=== PATIENT | female | born 1995 | race African-American/Black ===

== ENCOUNTER 2023-11-30 08:09 | Outpatient (OUT) | payer BC, SELFPAY | END 2023-11-30 08:10 | disposition home or self-care (01) | LOC: PST 08:13 | PROVIDERS: Visit Provider Obstetrics & Gynecology | DX: Z01.818 Encounter for other preprocedural examination (principal); Z30.2 Encounter for sterilization ==

== ENCOUNTER 2023-12-09 06:05 | Day surgery (SDC) | payer BC, OTHER, SELFPAY ==
[2023-11-30 08:31] VITALS: BP 107/72; PULSE 78; TEMP 36.3; O2SAT 96; BMI 29.4
[2023-12-09] VITALS (9 sets, daily range): BP systolic 102–122; BP diastolic 57–89; PULSE 62–86; TEMP 36.1–36.3; O2SAT 97–100; BMI 29.5
--- OUTSIDE RECORDS SUMMARY | 2023-12-09 06:08 | XMS_ITS | CCD ---
Author Organization [facility] Care Team Providers Care Management Planner Name Role Phone REQUEST, DR NONE LISTED Primary Care Unavaila ble HOLLY ., OSMAN Consulting Unavailable HOLLY ., OSMAN Admitting Unavailable HOLLY ., OMSAN Attending Unavailable KARASIK ., DR RODNEY Admitting Unavailabl e KARASIK ., DR RODNEY Attending Unavailabl e KARASIK ., DR RODNEY Consulting Unavailabl e MISC, DR PEACOCK Primary Care Unavailable ZIEBER, DR HARISH Trivedi Consulting Unavailable KARASIK ., DR RODNEY Admitting Unavailabl e KARASIK ., DR RODNEY Attending Unavailabl e KARASIK ., DR RODNEY Consulting Unavailabl e MISC, DR PEACOCK Primary Care Unavailable KARASIK ., DR RODNEY Admitting Unavailabl e KARASIK ., DR RODNEY Attending Unavailabl e MISC, DR PEACOCK Primary Care Unavailable KARASIK ., DR RODNEY Admitting Unavailabl e KARASIK ., DR RODNEY Attending Unavailabl e KARASIK ., DR RODNEY Consulting Unavailabl e MISC, DR PEACOCK Primary Care Unavailable ZIEBER, DR HARISH Trivedi Consulting Unavailable KARASIK ., DR RODNEY Admitting Unavailabl e KARASIK ., DR RODNEY Attending Unavailabl e KARASIK ., DR RODNEY Consulting Unavailabl e [facility] Primary Care Unava ilable HOLLY ., OSMAN Attending Unavailable REQUEST, DR DIAZ LISTED Primary Care Unavaila ble HOLLY ., OSMAN Consulting Unavailable HLOLY ., OSMAN Admitting Unavailable [facility] Primary Care Unava ilable SARA, DR KALEIGH Trivedi Admitting Unavailable SARA, DR KALEIGH Trivedi Attending Unavailable SARA, DR KALEIGH Trivedi Consulting Unavailable KATALINA, DR DIAZ LISTED Primary Care Unavaila ble NUSRAT ., DR BASS Procedure Practitioner Unavail able KARASIK ., DR RODNEY Admitting Unavailabl e KARASIK ., DR RODNEY Attending Unavailabl e KARASIK ., DR RODNEY Consulting Unavailabl e NUSRAT ., DR BASS Consulting Unavailable ALPHONSO, STEVEN Nelson Consulting Unavailable SHARP, ARTURO Consulting Unavailable ALPHONSO II, ELLA Consulting Unavailable FLORO ., JOSE Consulting Unavailable KARASIK ., DR RODNEY Consulting Unavailabl e MISC, DR PEACOCK Primary Care Unavailable KARASIK ., DR RODNEY Admitting Unavailabl e KARASIK ., DR RODNEY Attending Unavailabl e NUSRAT ., DR BASS Consulting Unavailable NUSRAT ., DR BASS Admitting Unavailable NUSRAT ., DR BASS Attending Unavailable MISC, DR PEACOCK Primary Care Unavailable NUSRAT ., DR BASS Admitting Unavailable NUSRAT ., DR BASS Attending Unavailable MISC, DR PEACOCK Primary Care Unavailable NUSRAT ., DR BASS Consulting Unavailable ZIEBER, DR HARISH Trivedi Consulting Unavailable REQUEST, DR JOE LISTED Primary Care Unavaila ble HOLLY ., OSMAN Admitting Unavailable HOLLY ., OSMAN Attending Unavailable HOLLY ., OSMAN Consulting Unavailable NUSRAT, KALI Attending Unavailable NUSRAT, KALI Attending Unavailable Problems Active Problems Problem Classification Problem Date Documented Da te Episodic/Chronic Asthma (1 source) Unspecified asthma, uncomplicated; Translations: [UNSPECIFIED ASTHMA UNCOMPLICATED] Onset: 03-17-2022 Chronic Deficiency and other anemia (1 source) Anemia, unspecified; Translations: [ANEMIA UNSPECIFIED] Onset: 07-25-2022 Episodic Menstrual disorders (5 sources) Irregular menstruation, unspecified; Translations: [IRREGULAR MENSTRUATION UNSPECIFIED] Onset: 02-09-2022 Chronic Other complications of ; puerperium affecting management of mother (1 source) Obstetric high vaginal laceration alone; Translations: [OBSTETRIC HIGH VAG LACERATION ALONE] Onset: 09-02-2022 Episodic Other complications of (4 sources) Anemia complicating , third trimester; Translations: [ANEMIA COMP THIRD TRI] Onset: 07-25-2022 Chronic Other complications of (4 sources) Anemia complicating , unspecified trimester; Translations: [ANEMIA COMP UNS TRIMESTER] Onset: 08-05-2022 Chronic Other complications of (4 sources) Maternal care for excessive growth, third trimester, not applicable or unspecified; Translations: [MAT CARE EXCSS FTL GRTH 3RD TRI UNS] Onset: 07-30-2022 Episodic Other and delivery including normal (14 sources) Single live ; Translations: [Encounter for supervision of normal , unspecified, unspecified trimester] Onset: 02-01-2022 Episodic Residual codes; unclassified (1 source) 38 weeks gestation of ; Translations: [38 WEEKS GESTATION OF ] Onset: 09-02-2022 Episodic Residual codes; unclassified (1 source) Weeks of gestation of not specified; Translations: [WEEKS GESTATION NOT SPEC] Onset: 08-16-2022 Episodic Residual codes; unclassified (1 source) 36 weeks gestation of ; Translations: [36 WEEKS GESTATION OF ] Onset: 08-06-2022 Episodic Unclassified (2 sources) COUGH, UNSPECIFIED; Translations: [COUGH, UNSPECIFIED] Onset: 03-17-2022 Unclassified (1 source) CONTACT W/AND (SUSP) EXPOS COVID-19; Translations: [CONTACT W/AND (SUSP) EXPOS COVID-19] Onset: 03-17-2022 Past or Other Problems Problem Classification Problem Date Documented Date Episodic/Chronic Fever of unknown origin (1 source) Fever, unspecified; Translations: [FEVER UNSPECIFIED] Onset: 03-17-2022 Episodic Immunizations and screening for infectious disease (2 sources) Encounter for screening for infections with a predominantly sexual mode of transmission; Translations: [Contact with and (suspected) exposure to infections with a predominantly sexual mode of transmission] Onset: 02-11-2022 Episodic Influenza (1 source) Influenza due to other identified influenza virus with other respiratory manifestations; Translations: [FLU D/T OTH ID FLU VIR OTH RSP MANF] Onset: 03-17-2022 Episodic Other screening for suspected conditions (not mental disorders or infectious disease) (2 sources) Encounter for screening for diabetes mellitus; Translations: [Encounter for other screening for genetic and chromosomal anomalies] Onset: 02-11-2022 Episodic Unclassified (1 source) COUGH, UNSPECIFIED; Translations: [COUGH, UNSPECIFIED] Onset: 03-16-2022 Results Test Name Value Interpretation Reference Range Facility CBC AUTO DIFFon 08-17-2022 BASO # 0.0 103/ul Normal 0.0-0.1 [facility] Comment on above: Performed By: #### H [facility] #### [facility] [address] [place] [address] Dr. Yilan Shook Basophils/100 WBC (Bld) 0.2 % Normal 0.2-2.0 [facility] Comment on above: Performed By: #### H BSANS #### [facility] [address] [place] [address] Dr. Casper Shook EO # 0.1 103/ul Normal 0.0-0.7 [facility] Comment on above: Performed By: #### H BSANS #### [facility] [address] [place] [address] Dr. Casper Shook Eosinophils/100 WBC (Bld) 0.4 % Critically low 0.9-7.0 [facility] Comment on above: Performed By: #### H BSANS #### [facility] [address] [place] [address] Dr. Casper Shook Erythrocyte distribution width (RBC) [Ratio] 18.9 % Critically high 11.0-15.0 [facility] Comment on above: Performed By: #### H BSANS #### [facility] [address] [place] [address] Dr. Casper Shook Hematocrit (Bld) [Volume fraction] 24.4 % Critically low 36.0-48.0 [facility] Comment on above: Performed By: #### H BSANS #### [facility] [address] [place] [address] Dr. Casper Shook Hemoglobin (Bld) [Mass/Vol] 7.5 g/dL Critically low 12.0-16.0 [facility] Comment on above: Performed By: #### H BSANS #### [facility] [address] [place] [address] Dr. Casper Shook IG # 0.09 10e3/ul Critically high 0.00-0.03 [facility] Comment on above: Performed By: #### H BSANS #### [facility] [address] [place] [address] Dr. Casper Shook IG % 0.5 % Normal 0.0-0.5 [facility] Comment on above: Performed By: #### H BSANS #### [facility] [address] [address] [address] Casper Shook LYMPH # 2.4 103/ul Normal 1.2-3.8 [facility] Comment on above: Performed By: #### H BSANS #### [facility] [address] [place] [address] Dr. Casper Shook Lymphocytes/100 WBC (Bld) 13.9 % Critically low 20.5-60.0 [facility] Comment on above: Performed By: #### H BSANS #### [facility] [address] [place] [address] Dr. Casper Shook MANUAL DIFF REQ NO Normal [facility] Comment on above: Performed By: #### H BSANS #### [facility] [address] [place] [address] Dr. Casper Shook MCH (RBC) [Entitic mass] 24.5 pg Critically low 26.7-34.0 [facility] Comment on above: Performed By: #### H BSANS #### [facility] [address] [place] [address] Dr. Casper Shook MCHC (RBC) [Mass/Vol] 30.7 g/dL Normal 29.9-35.2 [facility] Comment on above: Performed By: #### H BSANS #### [facility] [address] [place] [address] Dr. Casper Shook MCV (RBC) [Entitic vol] 79.7 fL Critically low 81.0-99.0 [facility] Comment on above: Performed By: #### H BSANS #### [facility] [address] [place] [address] Dr. Casper Shook MONO # 1.5 103/ul Critically high 0.3-0.8 [facility] Comment on above: Performed By: #### H BSANS #### [facility] [address] [place] [address] Dr. Casper Shook Monocytes/100 WBC (Bld) 8.4 % Normal 1.7-12.0 [facility] Comment on above: Performed By: #### H BSANS #### [facility] [address] [address] [address] Casper Shook NEUT # 13.3 103/ul Critically high 1.4-6.5 [facility] Comment on above: Performed By: #### H BSANS #### [facility] [address] [address] [address] Casper Shook Neutrophils/100 WBC (Bld) 76.6 % Critically high 43.0-75.0 [facility] Comment on above: Performed By: #### H CELENS #### [facility] [address] [place] [address] Dr. Casper Shook Platelet mean volume (Bld) [Entitic vol] 12.0 fL Normal 9.5-13.5 [facility] Comment on above: Performed By: #### H RIA #### [facility] [address] [place] [address] Dr. Casper Shook PLT 169 103/ul Normal 150-450 [facility] Comment on above: Performed By: #### H RIA #### [facility] [address] [place] [address] Dr. Casper Shook RBC 3.06 106/ul Critically low 4.20-5.40 [facility] Comment on above: Performed By: #### H RIA #### [facility] [address] [place] [address] Dr. Casper Shook WBC 17.4 103/ul Critically high 4.0-11.0 [facility] Comment on above: Performed By: #### H BSANS #### [facility] [address] [place] [address] Dr. Casper Shook CBC AUTO DIFFon 08-16-2022 BASO # 0.0 103/ul Normal 0.0-0.1 [facility] Comment on above: Performed By: #### C V[facility] #### [facility] [address] [place] [address] Dr. Casper Shook Basophils/100 WBC (Bld) 0.3 % Normal 0.2-2.0 [facility] Comment on above: Performed By: #### C VDTBH #### [facility] [address] [place] [address] Dr. Casper Shook EO # 0.1 103/ul Normal 0.0-0.7 [facility] Comment on above: Performed By: #### C VDTBH #### [facility] [address] [place] [address] Dr. Casper Shook Eosinophils/100 WBC (Bld) 0.6 % Critically low 0.9-7.0 [facility] Comment on above: Performed By: #### C VDTBH #### [facility] [address] [place] [address] Dr. Casper Shook Erythrocyte distribution width (RBC) [Ratio] 19.8 % Critically high 11.0-15.0 [facility] Comment on above: Performed By: #### C VDTB #### [facility] [address] [place] [address] Dr. Casper Shook Hematocrit (Bld) [Volume fraction] 33.4 % Critically low 36.0-48.0 [facility] Comment on above: Performed By: #### C VDTBH #### [facility] [address] [place] [address] Dr. Casper Shook Hemoglobin (Bld) [Mass/Vol] 10.8 g/dL Critically low 12.0-16.0 [facility] Comment on above: Performed By: #### C VDTBH #### [facility] [address] [place] [address] Dr. Casper Shook IG # 0.05 10e3/ul Critically high 0.00-0.03 [facility] Comment on above: Performed By: #### C VDTBH #### [facility] [address] [place] [address] Dr. Casper Shook IG % 0.4 % Normal 0.0-0.5 [facility] Comment on above: Performed By: #### C VDTBH #### [facility] [address] [place] [address] Dr. Casper Shook LYMPH # 1.8 103/ul Normal 1.2-3.8 [facility] Comment on above: Performed By: #### C VDTBH #### [facility] [address] [place] [address] Dr. Casper Shook Lymphocytes/100 WBC (Bld) 15.6 % Critically low 20.5-60.0 [facility] Comment on above: Performed By: #### C VDTBH #### [facility] [address] [place] [address] Dr. Casper Shook MANUAL DIFF REQ NO Normal [facility] Comment on above: Performed By: #### C VDTBH #### [facility] [address] [place] [address] Dr. Casper Shook MCH (RBC) [Entitic mass] 24.9 pg Critically low 26.7-34.0 [facility] Comment on above: Performed By: #### C VDTBH #### [facility] [address] [place] [address] Dr. Casper Shook MCHC (RBC) [Mass/Vol] 32.3 g/dL Normal 29.9-35.2 [facility] Comment on above: Performed By: #### C VDTBH #### [facility] [address] [place] [address] Dr. Casper Shook MCV (RBC) [Entitic vol] 77.1 fL Critically low 81.0-99.0 [facility] Comment on above: Performed By: #### C VDTBH #### [facility] [address] [place] [address] Dr. aCsper Shook MONO # 0.9 103/ul Critically high 0.3-0.[address] [facility] Comment on above: Performed By: #### C VDT[facility] #### [facility] [address] [place] [address] Dr. Casper Shook Monocytes/100 WBC (Bld) 7.9 % Normal 1.7-12.0 [facility] Comment on above: Performed By: #### C VDTBH #### [facility] [address] [place] [address] Dr. Casper Shook NEUT # 8.7 103/ul Critically high 1.4-6.[address] [facility] Comment on above: Performed By: #### C VDT[facility] #### [facility] [address] [address] [address] Casper Shook Neutrophils/100 WBC (Bld) 75.2 % Critically high 43.0-75.0 [facility] Comment on above: Performed By: #### C VDT[facility] #### [facility] [address] [address] [address] Casper Shook Platelet mean volume (Bld) [Entitic vol] 12.0 fL Normal 9.5-13.5 [facility] Comment on above: Performed By: #### C VDT[facility] #### [facility] [address] [place] [address] Dr. Casper Shook PLT 200 103/ul Normal 150-450 [facility] Comment on above: Performed By: #### C VDT[facility] #### [facility] [address] [place] [address] Dr. Casper Shook RBC 4.33 106/ul Normal 4.20-5.40 [facility] Comment on above: Performed By: #### C VDTBH #### [facility] [address] [place] [address] Dr. Casper Shook WBC 11.6 103/ul Critically high 4.0-11.0 [facility] Comment on above: Performed By: #### C VDTBH #### [facility] [address] [place] [address] Dr. Casper Shook DRUG SCREEN RAPID (URINE)on 08-16-2022 AMP Negative Normal NEGATIVE [facility] Comment on above: Performed By: #### D RUGRPD #### [facility] [address] [place] [address] Dr. Casper Shook BAR Negative Normal NEGATIVE [facility] Comment on above: Performed By: #### D RUGRPD #### [facility] [address] [place] [address] Dr. Casper Shook BUP Negative Normal NEGATIVE [facility] Comment on above: Performed By: #### D RUGRPD #### [facility] [address] [place] [address] Dr. Casper Shook BZO Negative Normal NEGATIVE [facility] Comment on above: Performed By: #### D RUGRPD #### [facility] [address] [place] [address] Dr. Casper Shook JONATHAN Negative Normal NEGATIVE [facility] Comment on above: Performed By: #### D RUGRPD #### [facility] [address] [place] [address] Dr. Casper Shook CUT-OFFS SEE BELOW Normal [facility] Comment on above: Result Comment: AMP (Amphetamine): 500ng/mL, BAR (Barbituates): 200 ng/mL, BZO (Benzodiazepines): 150 ng/mL, BUP (Buprenorphine): 10 ng/mL, JONATHAN (Cocaine): 150 ng/mL, mAMP (Methamphetamine): 500 ng/mL, MTD (Methadone): 200 ng/mL, OPI (Opiates): 100 ng/mL, OXY (Oxycodone): 100 ng/mL, PCP (Phencyclidine): 25 ng/mL, PPX (Propoxyphene): 300 ng/mL, THC (Cannabinoids): 50 ng/mL, TCA (Trycyclic Antidepressants): 300 ng/mL Performed By: #### D RUGRPD #### [facility] [address] [place] [address] Dr. Casper Shook DRUG CUT HEADER DRUG CLASS TEST SYSTEM CUT-OFF CONCENTRATIONS ARE FOLLOWS: Normal [facility] Comment on above: Performed By: #### D RUGRPD #### [facility] [address] [place] [address] Dr. Casper Shook mAMP Negative Normal NEGATIVE [facility] Comment on above: Performed By: #### D RUGRPD #### [facility] [address] [place] [address] Dr. Casper Shook MTD Negative Normal NEGATIVE [facility] Comment on above: Performed By: #### D RUGRPD #### [facility] [address] [place] [address] Dr. Casper Shook OPI Negative Normal NEGATIVE [facility] Comment on above: Performed By: #### D RUGRPD #### [facility] [address] [address] [address] Casper Shook OXY Negative Normal NEGATIVE [facility] Comment on above: Performed By: #### D RUGRPD #### [facility] [address] [place] [address] Dr. Casper Shook PCP Negative Normal NEGATIVE [facility] Comment on above: Performed By: #### D RUGRPD #### [facility] [address] [place] [address] Dr. Casper Shook PPX Negative Normal NEGATIVE [facility] Comment on above: Performed By: #### D RUGRPD #### [facility] [address] [place] [address] Dr. Casper Shook TCA Negative Normal NEGATIVE [facility] Comment on above: Performed By: #### D RUGRPD #### [facility] [address] [place] [address] Dr. Casper Shook THC Negative Normal NEGATIVE [facility] Comment on above: Performed By: #### D RUGRPD #### [facility] [address] [place] [address] Dr. Casper Shook TYPE AND SCREENon 08-16-2022 TYPE AND SCREEN Negative Normal [facility] Comment on above: Performed By: #### T NS #### [facility] [address] [place] [address] Dr. Casper Shook US PREG GROWTHon 08-02-2022 US PREG GROWTH EXAMINATION: US PREG GROWTH HISTORY: Excessive growth affecting management of mother COMPARISON: Ultrasound anatomy 04/09/2022 FINDINGS: Heart Rate: 124.4 bpm Number: 1.0 Position: CEPHALIC Amniotic Fluid Volume: 12.5 cm Maximum Vertical Pocket: 5.1 cm BIOMETRY: BPD: 9.1 cm cm; 37 weeks 0 days HC: 33.8 cmcm; 38 weeks 6 days AC: 33.5 cm cm; 37 weeks 3 days FL: 6.7 cm cm; 34 weeks 3 days EFW: 3029.3 grams; 70% FL/AC: 20.0 FL/BPD: 73.4 HC/AC: 1.0 GESTATIONAL AGE: Age by EDC: 36 weeks 1 days KVNG by EDC: 08/26/2022 Age by US: 37 weeks 0 days KVNG by US: 08/20/2022 IMPRESSION: 1. Single live intrauterine with growth detailed above. Electronically authenticated by: HARISH BOTELLO Date: 2022-08-02 09:39 Normal [facility] GROUP B STREP CULTUREon 07-02 S. agalactiae Ag Ql (Unsp spec) Culture Observations: NEGATIVE FOR GROUP B STREPTOCOCCUS. Normal [facility] Comment on above: Performed By: #### H BSANS #### [facility] [address] [place] [address] Dr. Casper Shook CBC AUTO DIFFon 07-22-2022 BASO # 0.0 103/ul Normal 0.0-0.1 [facility] Comment on above: Performed By: #### C BC #### [facility] [address] [place] [address] Dr. Casper Shook Basophils/100 WBC (Bld) 0.2 % Normal 0.2-2.0 [facility] Comment on above: Performed By: #### C BC #### [facility] [address] [place] [address] Dr. Casper Shook EO # 0.1 103/ul Normal 0.0-0.7 [facility] Comment on above: Performed By: #### C BC #### [facility] [address] [place] [address] Dr. Casper Shook Eosinophils/100 WBC (Bld) 0.8 % Critically low 0.9-7.0 [facility] Comment on above: Performed By: #### C BC #### [facility] [address] [place] [address] Dr. Casper Shook Erythrocyte distribution width (RBC) [Ratio] 14.9 % Normal 11.0-15.0 [facility] Comment on above: Performed By: #### C BC #### [facility] [address] [place] [address] Dr. Casper Shook Hematocrit (Bld) [Volume fraction] 29.5 % Critically low 36.0-48.0 [facility] Comment on above: Performed By: #### C BC #### [facility] [address] [address] [address] Casper Shook Hemoglobin (Bld) [Mass/Vol] 9.6 g/dL Critically low 12.0-16.0 [facility] Comment on above: Performed By: #### C BC #### [facility] [address] [address] [address] Casper Shook IG # 0.04 10e3/ul Critically high 0.00-0.03 [facility] Comment on above: Performed By: #### C BC #### [facility] [address] [address] [address] Casper Shook IG % 0.5 % Normal 0.0-0.5 [facility] Comment on above: Performed By: #### C BC #### [facility] [address] [place] [address] Dr. Casper Shook LYMPH # 1.5 103/ul Normal 1.2-3.8 [facility] Comment on above: Performed By: #### C BC #### [facility] [address] [place] [address] Dr. Casper Shook Lymphocytes/100 WBC (Bld) 17.9 % Critically low 20.5-60.0 [facility] Comment on above: Performed By: #### C BC #### [facility] [address] [place] [address] Dr. Casper Shook MANUAL DIFF REQ NO Normal [facility] Comment on above: Performed By: #### C BC #### [facility] [address] [address] [address] Casper Shook MCH (RBC) [Entitic mass] 24.7 pg Critically low 26.7-34.0 [facility] Comment on above: Performed By: #### C BC #### [facility] [address] [place] [address] Dr. Casper Shook MCHC (RBC) [Mass/Vol] 32.5 g/dL Normal 29.9-35.2 [facility] Comment on above: Performed By: #### C BC #### [facility] [address] [address] [address] Casper Shook MCV (RBC) [Entitic vol] 75.8 fL Critically low 81.0-99.0 [facility] Comment on above: Performed By: #### C BC #### [facility] [address] [address] [address] Casper Shook MONO # 0.6 103/ul Normal 0.3-0.8 [facility] Comment on above: Performed By: #### C BC #### [facility] [address] [address] [address] Casper Shook Monocytes/100 WBC (Bld) 7.2 % Normal 1.7-12.0 [facility] Comment on above: Performed By: #### C BC #### [facility] [address] [address] [address] Casper Shook NEUT # 6.3 103/ul Normal 1.4-6.5 [facility] Comment on above: Performed By: #### C BC #### [facility] [address] [address] [address] Casper Shook Neutrophils/100 WBC (Bld) 73.4 % Normal 43.0-75.0 [facility] Comment on above: Performed By: #### C BC #### [facility] [address] [address] [address] Casper Shook Platelet mean volume (Bld) [Entitic vol] 10.7 fL Normal 9.5-13.5 [facility] Comment on above: Performed By: #### C BC #### [facility] [address] [address] [address] Casper Shook PLT 218 103/ul Normal 150-450 [facility] Comment on above: Performed By: #### C BC #### [facility] [address] [address] [address] Casper Shook RBC 3.89 106/ul Critically low 4.20-5.40 [facility] Comment on above: Performed By: #### C BC #### [facility] [address] [address] [address] Casper Shook WBC 8.6 103/ul Normal 4.0-11.0 [facility] Comment on above: Performed By: #### C BC #### [facility] [address] [place] [address] Dr. Casper Shook CBC AUTO DIFFon 06-08-2022 BASO # 0.0 103/ul Normal 0.0-0.1 [facility] Comment on above: Performed By: #### C BC #### [facility] [address] [place] [address] Dr. Casper Shook Basophils/100 WBC (Bld) 0.3 % Normal 0.2-2.0 [facility] Comment on above: Performed By: #### C BC #### [facility] [address] [place] [address] Dr. Casper Shook EO # 0.2 103/ul Normal 0.0-0.7 [facility] Comment on above: Performed By: #### C BC #### [facility] [address] [place] [address] Dr. Casper Shook Eosinophils/100 WBC (Bld) 2.0 % Normal 0.9-7.0 [facility] Comment on above: Performed By: #### C BC #### [facility] [address] [place] [address] Dr. Casper Shook Erythrocyte distribution width (RBC) [Ratio] 14.6 % Normal 11.0-15.0 [facility] Comment on above: Performed By: #### C BC #### [facility] [address] [place] [address] Dr. Casper Shook Hematocrit (Bld) [Volume fraction] 31.5 % Critically low 36.0-48.0 [facility] Comment on above: Performed By: #### C BC #### [facility] [address] [place] [address] Dr. Casper Shook Hemoglobin (Bld) [Mass/Vol] 9.5 g/dL Critically low 12.0-16.0 [facility] Comment on above: Performed By: #### C BC #### [facility] [address] [address] [address] Casper Shook IG # 0.04 10e3/ul Critically high 0.00-0.03 [facility] Comment on above: Performed By: #### C BC #### [facility] [address] [address] [address] Casper Shook IG % 0.5 % Normal 0.0-0.5 [facility] Comment on above: Performed By: #### C BC #### [facility] [address] [place] [address] Dr. Casper Shook LYMPH # 1.4 103/ul Normal 1.2-3.8 [facility] Comment on above: Performed By: #### C BC #### [facility] [address] [place] [address] Dr. Casper Shook Lymphocytes/100 WBC (Bld) 15.6 % Critically low 20.5-60.0 [facility] Comment on above: Performed By: #### C BC #### [facility] [address] [place] [address] Dr. Casper Shook MANUAL DIFF REQ NO Normal [facility] Comment on above: Performed By: #### C BC #### [facility] [address] [place] [address] Dr. Casper Shook MCH (RBC) [Entitic mass] 24.7 pg Critically low 26.7-34.0 [facility] Comment on above: Performed By: #### C BC #### [facility] [address] [place] [address] Dr. Casper Shook MCHC (RBC) [Mass/Vol] 30.2 g/dL Normal 29.9-35.2 [facility] Comment on above: Performed By: #### C BC #### [facility] [address] [place] [address] Dr. Casper Shook MCV (RBC) [Entitic vol] 82.0 fL Normal 81.0-99.0 [facility] Comment on above: Performed By: #### C BC #### [facility] [address] [address] [address] Casper Shook MONO # 0.6 103/ul Normal 0.3-0.8 [facility] Comment on above: Performed By: #### C BC #### [facility] [address] [place] [address] Dr. Casper Shook Monocytes/100 WBC (Bld) 6.9 % Normal 1.7-12.0 [facility] Comment on above: Performed By: #### C BC #### [facility] [address] [place] [address] Dr. Casper Shook NEUT # 6.5 103/ul Normal 1.4-6.5 [facility] Comment on above: Performed By: #### C BC #### [facility] [address] [place] [address] Dr. Casper Shook Neutrophils/100 WBC (Bld) 74.7 % Normal 43.0-75.0 [facility] Comment on above: Performed By: #### C BC #### [facility] [address] [place] [address] Dr. Casper Shook Platelet mean volume (Bld) [Entitic vol] 11.6 fL Normal 9.5-13.5 [facility] Comment on above: Performed By: #### C BC #### [facility] [address] [place] [address] Dr. Casper Shook PLT 225 103/ul Normal 150-450 [facility] Comment on above: Performed By: #### C BC #### [facility] [address] [place] [address] Dr. Casper Shook RBC 3.84 106/ul Critically low 4.20-5.40 [facility] Comment on above: Performed By: #### C BC #### [facility] [address] [place] [address] Dr. Casper Shook WBC 8.7 103/ul Normal 4.0-11.0 [facility] Comment on above: Performed By: #### C BC #### [facility] [address] [place] [address] Dr. Casper Shook GLUCOSE - 1HRon 06-08-2022 Glucose [Mass/Vol] 109 mg/dL Critically high 74-106 [facility] Comment on above: Performed By: #### H BSANS #### [facility] [address] [place] [address] Dr. Casper Shook AFP MATERNAL FOR SPINA BIFID Aon 05-04-2022 AFP MoM 1.42 Normal [facility] Comment on above: Result Comment: This is a corrected report. The previously reported result was: AFP MoM See interpretation. 04/16/2022 Performed By: #### C VDTBH #### [facility] [address] [address] [address] Casper Shook AFP Value 87.5 ng/mL Normal [facility] Comment on above: Performed By: #### C VDTBH #### [facility] [address] [place] [address] Dr. Casper Shook AFP, Serum for Spina Bifida Comment Normal [facility] Comment on above: Result Comment: The MOM and risk factors of this report have been modified based on new information supplied to us by the client or their designated credit representative. The Gestational Age Based On was changed from LMP to Ultrasound 18:5 on 03/30/2022. The Gestational Age was changed from 12.7 to 20.7. Performed By: #### C VDTBH #### [facility] [address] [place] [address] Dr. Casper Shook Comment Comment Normal [facility] Comment on above: Result Comment: Antoni Painter, Ph.D., [facility] Director . References: Available Upon Request. . Multiples Of Median Cutoffs For AFP Elevations Miller 2.5 Black 2.8 IDD 2.0 Twins 4.5 Abbreviation Definitions IDD - Insulin Dep Diabetes OSBR - Open Spina Bifida Risk . For further inquiries contact [employer] [facility] at [phone]. . This test was developed and its performance characteristics determined by [employer]. It has not been cleared or approved by the Food and Drug Administration. Performed By: #### C VDTBH #### [facility] [address] [address] [address] Casper Shook Gest Age Collection Date 20.7 weeks Normal [facility] Comment on above: Result Comment: This is a corrected report. The previously reported result was: Gest. Age on Sarah... 12.7 weeks 04/16/2022 Performed By: #### C VDTBH #### [facility] [address] [place] [address] Dr. Casper Shook Gestat, Age Based on Ultrasound Normal [facility] Comment on above: Result Comment: 18:5 on 03/30/2022 Recalculations are not recommended when gestational dating by LMP and ultrasound are within 10 days. This is a corrected report. The previously reported result was: Gestat. Age Based On LMP 04/16/2022 Performed By: #### C VDTBH #### [facility] [address] [place] [address] Dr. Casper Shook Insulin Dep Diabetes No Normal [facility] Comment on above: Performed By: #### C VDTBH #### [facility] [address] [place] [address] Dr. Casper Shook Interpretation Comment Normal [facility] Comment on above: Result Comment: Inte rpretation: Screen Negative . This result is screen negative for OSB. The AFP MoM calculated is based on the gestational age provided. MS-AFP can identify up to 80% of open neural tube defects. Closed neural tube defects and some open defects may not be detected by this test. This test does not screen for Down Syndrome or Trisomy 18. If screening for Down Syndrome or Trisomy 18 is desired, contact [facility] [employer] [facility] to discuss available options. The [employer] recommends amniocentesis be offered to women age 35 and older. This is a corrected report. The previously reported result(s) were: Test Result Date First Reported Updates reported on: 05/04/2022 11:04 AM AFP MOM VALUE 04/16/2022 12:01 PM See interpretation. INTERP 04/16/2022 12:01 PM Interpretation: An interpretation CANNOT be provided for this patient due to one of the following reasons: 1. Gestational age is <15 weeks. Please submit a second sample at the optimum gestational age for screening (16-18 weeks). OR 2. Gestational age is greater than 23 weeks. OSBR RISK 1 IN 04/16/2022 12:01 PM See interpretation. AFP MATERNAL, SERUM 04/16/2022 12:01 PM Report TEST RESULTS: SCREEN 04/16/2022 12:01 PM See interpretation. This is a corrected report. The previously reported result was: Interpretation 04/16/2022 Interpretation: An interpretation CANNOT be provided for this patient due to one of the following reasons: 1. Gestational age is <15 weeks. Please submit a second sample at the optimum gestational age for screening (16-18 weeks). OR 2. Gestational age is greater than 23 weeks. Performed By: #### C VDTBH #### [facility] [address] [place] [address] Dr. Casper Shook [age] [facility] Comment on above: Result Comment: This is a corrected report. The previously reported result was: [age]VNG [age] 04/16/2022 Performed By: #### C VDTBH #### [facility] [address] [address] [address] Casper Shook Multiple Gestation No Normal [facility] Comment on above: Performed By: #### C VDTBH #### [facility] [address] [place] [address] Dr. Casper Shook OSBR Risk 1 IN 6808 Normal [facility] Comment on above: Result Comment: This is a corrected report. The previously reported result was: OSBR Risk 1 IN See interpretation. 04/16/2022 Performed By: #### C VDTBH #### [facility] [address] [address] [address] Casper Shook PDF . Normal [facility] Comment on above: Performed By: #### C VDTBH #### [facility] [address] [place], [place] [id number] Dr. Casper Shook Race Black Normal [facility] Comment on above: Performed By: #### C VDTBH #### [facility] [address] [place] [address] Dr. Casper Shook Test Results: Negative Normal [facility] Comment on above: Result Comment: This is a corrected report. The previously reported result was: Test Results: See interpretation. 04/16/2022 Performed By: #### C [facility] #### [facility] [address] [place] [address] Dr. Casper Shook US PREG ANATOMY SINGLEon US PREG ANATOMY SINGLE EXAMINATION: US PREG ANATOMY SINGLE HISTORY: Routine care COMPARISON: No relevant comparison available. TECHNIQUE: Transabdominal sonographic examination was performed for obstetrical and evaluation. FINDINGS: Number: 1 Heart Rate: 149.2 bpm H.B. /min Amniotic Fluid Volume: Subjectively normal Placental Location: POSTERIOR with lower margin 7.3 cm from os. Cervix Length: 5 cm , closed. ANATOMY: Normal Structures -cerebellum, choroid plexus, cisterna magna, lateral cerebral ventricles, orbits, midline falx, hard palate, four-chamber heart, RVOT, LVOT, stomach, kidneys, bladder, umbilical cord insertion into abdomen, three-vessel cord, cervical spine, thoracic spine, lumbar spine, sacral spine, right upper extremity, left upper extremity, right lower extremity, left lower extremity. SUBOPTIMALLY SEEN: None ABNORMALITIES: None BIOMETRY: BPD: 4.8 cm 20 weeks 3 days HC: 17.9 cm 20 weeks 2 days AC: 15.7 cm 20 weeks 6 days FL: 3.2 cm 20 weeks 1 days EFW:357.1 grams; 65% FL/AC: 20.7 FL/BPD: 67.8 HC/AC: 1.1 GESTATIONAL AGE: Age by EDC: 20 weeks 1 days KVNG by EDC: 08/26/2022 Age by current US: 20 weeks 3 days KVNG by current US: 08/24/2022 IMPRESSION: 1. Single live intrauterine with growth detailed above. Electronically authenticated by: HARISH BOTELLO Date: 2022-04-14 08:58 Normal [facility] SARS-CoV-2 (COVID-19) RNA POLY+probe Ql (Unsp spec) Not detected Normal NOT DETECTED [facility] Comment on above: Result Comment: When diagnostic testing is negative, the possibility of a false negative should be considered in the context of a patient's recent exposures and the presence of clinical signs and symptoms consistent with SARS-CoV-2. This test is not yet approved or cleared by the [place] FDA. When there are no FDA-approved or cleared tests available, and other criteria are met, FDA can make tests available under an emergency access mechanism called an Emergency Use Authorization (EUA). The EUA for this test is supported by the Entry Level Paralegal of Health and Human Service's declaration that circumstances exist to justify the emergency use of in vitro diagnostics for the detection and/or diagnosis of the virus that causes COVID-19. This EUA will remain in effect for the duration of the COVID-19 declaration justifying emergency of IVDs, unless it is terminated or revoked by the FDA (after which the test may no longer be used). Performed By: #### C VDTBH #### [facility] [address] [place] [address] Dr. Casper Shook INFLUENZA A AND B [facility] 03-16 [facility] SEE BELOW Normal [facility] Comment on above: Result Comment: Nega tive for Flu A protein angiten. Infection due to Flu A cannot be ruled out. Flu A angiten in the sample may be below the detection limit of the test. Performed By: #### C VDTBH #### [facility] [address] [place] [address] Dr. Casper Shook INFLUENZA A AG Positive Abnormal NEGATIVE SEE COMMENT [facility] Comment on above: Performed By: #### C VDTBH #### [facility] [address] [place] [address] Dr. Casper Shook INFLUENZA B AG Negative Normal NEGATIVE SEE COMMENT [facility] Comment on above: Performed By: #### C VDTBH #### [facility] [address] [place] [address] Dr. Casper Shook INFLUPOS SEE BELOW Normal [facility] Comment on above: Result Comment: NOTE : Live attenuated influenzae vaccine viruses can cause a positive result for a rapid influenza diagnostic test if administered up to 7 days prior to rapid testing. Performed By: #### C VDTBH #### [facility] [address] [address] [address] Casper Shook INTERNAL CONTROLS Within Normal Limits Normal Wi thin Normal Limits [facility] Comment on above: Performed By: #### C VDTBH #### [facility] [address] [place] [address] Dr. Casper Shook HEP B SURFACE ANTIGEN SCREEN on 02-10-2022 HBsAg Screen Negative Normal Negative [facility] Comment on above: Performed By: #### H BSANS #### [facility] [address] [address] [address] Casper Shook HEPATITIS C VIRUS AB W/ REFL EX QUANTon 02-10-2022 HCV AB <0.1 Normal 0.0-0.9 [facility] Comment on above: Performed By: #### H BSANS #### [facility] [address] [place] [address] Dr. Casper Shook Interpretation: Comment Normal [facility] Comment on above: Result Comment: Nega tive Not infected with HCV, unless recent infection is suspected or other evidence exists to indicate HCV infection. Performed By: #### H BSANS #### [facility] [address] [place] [address] Dr. Casper Shook HIV 1 AND 2 WITH REFLEXon HIV Screen 4th Generation wRfx Non-Reactive Normal Non Reactive [facility] Comment on above: Result Comment: HIV Negative HIV-1/HIV-2 antibodies and HIV-1 p24 antigen were NOT detected. There is no laboratory evidence of HIV infection. Performed By: #### C VDTBH #### [facility] [address] [place] [address] Dr. Casper Shook RPR QUANTon 02-10-2022 Rapid Plasma Reagin, Quant Non-Reactive Normal NonRea<1:1 [facility] Comment on above: Result Comment: Plea se Note: This test does not meet current guidelines for screening and diagnosis of syphilis. This test is intended for following treatment response in patients being treated for syphilis infection. To screen for syphilis infection, a reflex cascade that includes both RPR and a treponema-specific assay should be utilized, such as Treponema pallidum (Syphilis) Screening Calvin (783925) or Rapid Plasma Reagin (RPR) Test With Reflex to Quantitative RPR and Confirmatory Treponema pallidum Antibodies (256584). Performed By: #### H BSANS #### [facility] [address] [place] [address] Dr. Casper Shook RUBELLA AB IGGon 02-10-2022 Rubella Antibodies, IgG 4.40 index Normal Immune >0.99 [facility] Comment on above: Result Comment: Non- immune <0.90 Equivocal 0.90 - 0.99 Immune >0.99 Performed By: #### R UBIGG #### [facility] [address] [place] [address] Dr. Casper Shook CBC AUTO DIFFon 02-09-2022 BASO # 0.0 103/ul Normal 0.0-0.1 [facility] Comment on above: Performed By: #### H BSANS #### [facility] [address] [place] [address] Dr. Casper Shook Basophils/100 WBC (Bld) 0.2 % Normal 0.2-2.0 [facility] Comment on above: Performed By: #### H BSANS #### [facility] [address] [place] [address] Dr. Casper Shook EO # 0.2 103/ul Normal 0.0-0.7 [facility] Comment on above: Performed By: #### H BSANS #### [facility] [address] [place] [address] Dr. Casper Shook Eosinophils/100 WBC (Bld) 1.8 % Normal 0.9-7.0 [facility] Comment on above: Performed By: #### H BSANS #### [facility] [address] [place] [address] Dr. Casper Shook Erythrocyte distribution width (RBC) [Ratio] 13.8 % Normal 11.0-15.0 [facility] Comment on above: Performed By: #### H BSANS #### [facility] [address] [place] [address] Dr. Casper Shook Hematocrit (Bld) [Volume fraction] 33.8 % Critically low 36.0-48.0 [facility] Comment on above: Performed By: #### H BSANS #### [facility] [address] [address] [address] Casper Shook Hemoglobin (Bld) [Mass/Vol] 11.0 g/dL Critically low 12.0-16.0 [facility] Comment on above: Performed By: #### H BSANS #### [facility] [address] [place] [address] Dr. Casper Shook IG # 0.02 10e3/ul Normal 0.00-0.03 [facility] Comment on above: Performed By: #### H BSANS #### [facility] [address] [place] [address] Dr. Casper Shook IG % 0.2 % Normal 0.0-0.5 [facility] Comment on above: Performed By: #### H BSANS #### [facility] [address] [place] [address] Dr. Casper Shook LYMPH # 1.7 103/ul Normal 1.2-3.8 [facility] Comment on above: Performed By: #### H BSANS #### [facility] [address] [place] [address] Dr. Casper Shook Lymphocytes/100 WBC (Bld) 20.0 % Critically low 20.5-60.0 [facility] Comment on above: Performed By: #### H BSANS #### [facility] [address] [place] [address] Dr. Casper Shook MANUAL DIFF REQ NO Normal [facility] Comment on above: Performed By: #### H BSANS #### [facility] [address] [place] [address] Dr. Casper Shook MCH (RBC) [Entitic mass] 25.7 pg Critically low 26.7-34.0 [facility] Comment on above: Performed By: #### H BSANS #### [facility] [address] [place] [address] Dr. Casper Shook MCHC (RBC) [Mass/Vol] 32.5 g/dL Normal 29.9-35.2 [facility] Comment on above: Performed By: #### H BSANS #### [facility] [address] [place] [address] Dr. Casper Shook MCV (RBC) [Entitic vol] 79.0 fL Critically low 81.0-99.0 [facility] Comment on above: Performed By: #### H BSANS #### [facility] [address] [place] [address] Dr. Casper Shook MONO # 0.7 103/ul Normal 0.3-0.8 [facility] Comment on above: Performed By: #### H BSANS #### [facility] [address] [place] [address] Dr. Casper Shook Monocytes/100 WBC (Bld) 7.5 % Normal 1.7-12.0 [facility] Comment on above: Performed By: #### H BSANS #### [facility] [address] [place] [address] Dr. Casper Shook NEUT # 6.1 103/ul Normal 1.4-6.5 [facility] Comment on above: Performed By: #### H BSANS #### [facility] [address] [place] [address] Dr. Casper Shook Neutrophils/100 WBC (Bld) 70.3 % Normal 43.0-75.0 [facility] Comment on above: Performed By: #### H BSANS #### [facility] [address] [place] [address] Dr. Casper Shook Platelet mean volume (Bld) [Entitic vol] 10.5 fL Normal 9.5-13.5 [facility] Comment on above: Performed By: #### H BSANS #### [facility] [address] [place] [address] Dr. Casper Shook PLT 237 103/ul Normal 150-450 [facility] Comment on above: Performed By: #### H BSANS #### [facility] [address] [place] [address] Dr. Casper Shook RBC 4.28 106/ul Normal 4.20-5.40 [facility] Comment on above: Performed By: #### H BSANS #### [facility] [address] [place] [address] Dr. Casper Shook WBC 8.7 103/ul Normal 4.0-11.0 [facility] Comment on above: Performed By: #### H BSANS #### [facility] [address] [place] [address] Dr. Casper Shook CULTURE URINEon 02-09-2022 CULTURE URINE Culture Observations : NO GROWTH. Normal [facility] Comment on above: Performed By: #### U RCX #### [facility] [address] [place] [address] Dr. Casper Shook GLYCOHEMOGLOBIN A1Con 2021 ADA RECOMMENDATION SEE BELOW Normal [facility] Comment on above: Result Comment: ADA RECOMMENDED LIMIT 4.0 - 6.0 ADA THERAPEUTIC TARGET < 7.0 ACTION SUGGESTED > 7.0 Performed By: #### A 1C #### [facility] [address] [place] [address] Dr. Casper Shook Glucose [Mass/Vol] 94 mg/dL Normal [facility] Comment on above: Performed By: #### A 1C #### [facility] [address] [place] [address] Dr. Casper Shook HbA1c (Bld) [Mass fraction] 4.9 % Normal 4.5-6.2 [facility] Comment on above: Performed By: #### A 1C #### [facility] [address] [place] [address] Dr. Casper Shook ANANT BOX TEST PT SEND OUTo n 02-09-2022 SENT TO REF LAB 02/09/2022 Normal [facility] Comment on above: Performed By: #### N BOX #### [facility] [address] [place] [address] Dr. Casper Shook TYPE AND SCREENon 02-09-2022 TYPE AND SCREEN Negative Normal [facility] Comment on above: Performed By: #### H BSANS #### [facility] [address] [place] [address] Dr. Casper Shook US PREG TVon 01-28-2022 US PREG TV EXAMINATION: US PREG TV HISTORY: Missed period COMPARISON: No relevant comparison available. FINDINGS: GESTATIONAL SAC: Present and normal appearing. POLE: Present and normal appearing. YOLK SAC: Present. CARDIAC: Present. UTERUS: Normal size and appearance. OVARIES: Right: Normal. Left: Normal. CERVIX: 4.3 cm in length and closed. CUL-DE-SAC: Normal. OTHER: None. AGE BY LMP: 10 weeks 0 days KVNG BY LMP: 08/26/2022 AGE BY US CRL: 9 weeks 5 days KVNG BY US CRL: 08/28/2022 IMPRESSION: 1. Single live intrauterine . Electronically authenticated by: HARISH BOTELLO Date: 2022-01-28 16:11 Normal [facility] Vital Signs Date Time Vital Sign Value Performing Clinician Neva gomes 05-04-2022 13:20-0500 Body weight 86.[address] DIAZ LISTED REQUEST [facility] Comment on above: Performed By: #### [facility] #### [facility] [address] [place] [address] Dr. Casper Shook Encounters Encounter Date Encounter Type Care Provider Facility Start: 11-09-2023 End: 11-09-2023 ambulatory KALI SILVERIO Not Available Start: 10-04-2023 End: 10-04-2023 ambulatory KALI SILVERIO Not Available Start: 08-16-2022 End: 08-18-2022 Evaluation and management of inpatient NONE LISTED REQUEST Facility:[facility] Start: 08-05-2022 End: 08-12-2022 ambulatory OSMAN BARRREA . Facility:[facility] Start: 07-30-2022 End: 07-31-[address] HARISH BOTELLO Facility:[facility] Start: 07-29-2022 End: 07-29-2022 ambulatory NONE LISTED REQUEST Facility:[facility] Start: 07-22-2022 End: 07-23-[address] KALI SILVERIO . Facility:[facility] Start: 06-08-2022 End: 06-09-[address] KALI SILVERIO . Facility:[facility] Start: 04-13-2022 End: 04-14-[address] RASHAUN ECHOLS . Facility:[facility] Start: 04-09-2022 End: 04-10-[address] RASHAUN ECHOLS . Facility:[facility] Start: 03-30-2022 End: 03-31-[address] RASHAUN ECHOLS . Facility:[facility] Start: 03-16-2022 End: 03-16-2022 ambulatory [facility] Facility:[facility] Start: 02-09-2022 End: 02-10-[address] RASHAUN ECHOLS . Facility:[facility] Start: 01-28-2022 End: 01-29-[address] RASHAUN ECHOLS . Facility:[facility] Procedures Date Procedure Procedure Detail Performing Clinician Start: 08-17-2022 Repair Vagina, Exter nal Approach DR NONE LISTED REQUEST Start: 08-16-2022 Drainage of Amniotic Fluid, Therapeutic from Products of Conception, Via Natural or Artificial Opening NONE LISTED REQUEST Start: 08-16-2022 Extraction of Produc ts of Conception, Vacuum, Via Natural or Artificial Opening DR NONE LISTED REQUEST Payers Date Payer Category Payer Unknown [id number] 1996 Unknown [id number] 2.16.84 [id number] 1996 Unknown [id number] 2.16.84 0.1.237761.3.579.2.593 1996 Unknown [id number] 2.16.84 0.1.071551.3.579.2.593 1996 Unknown [id number] 2.16.84 0.1.745742.3.579.2.593 1996 Unknown [id number] 2.16.84 0.1.700195.3.579.2.593 1996 Unknown [id number] 2.16.84 0.1.772069.3.579.2.593 1996 Unknown [id number] 2.16.84 0.1.936468.3.579.2.593 1996 Unknown [id number] 2.16.84 0.1.236553.3.579.2.593 1996 Unknown [id number] 2.16.84 0.1.431546.3.579.2.593 1996 Unknown [id number] 2.16.84 0.1.748322.3.579.2.593 1996 Unknown [id number] 2.16.84 0.1.198142.3.579.2.593 1996 Unknown [id number] 2.16.84 0.1.269092.3.579.2.593 1996 Unknown [id number] 2.16.84 0.1.226470.3.579.2.1259 1996 Unknown [id number] 2.16.84 0.1.684569.3.579.2.1259 1959 Self-pay 1959 Unknown [id number] 1959 Unknown [id number] 1959 Unknown [id number] Unknown [id number]. [id number] Summary Purpose Family History No Family History Records FoundNo Family History Records Found Advance Directives No Advanced Directives Records FoundNo Advanced Directives Records Found Additional Source Comments INFORMATION SOURCE (unrecogn ized section and content) DATE CREATED AUTHOR [facility]03[facility]2022 [facility] AUTHOR AUTHOR'Bipin BROWN 11/15/2023 [facility] FOR RECORDS PERTAINING TO PATIENTS WHO ARE OR HAVE BEEN ENROLLED IN A CHEMICAL DEPENDENCY/SUBSTANCEABUSE PROGRAM, SOME INFORMATION MAY BE OMITTED. This clinical summary was aggregated from multiple sources. Caution should be exercised in using it in the provision of clinical care. This summary normalizes information from multiple sources, and as a consequence, information in this document may materially change the coding, format and clinical context of patient data. In addition, data may be omitted in some cases. CLINICAL DECISIONS SHOULD BE BASED ON THE PRIMARY CLINICAL RECORDS. [facility] [employer] provides no warranty or guarantee of the accuracy or completeness of information in this document.
[2023-12-09 06:32] LABS: Basophils Absolute Auto 0.1 10^3/uL (0.0-0.1); Basophils Percent Auto 1.1 % (0.2-2.0); Eosinophils Absolute Auto 0.3 10^3/uL (0.0-0.7); Eosinophils Percent Auto 4.4 % (0.9-7.0); Hematocrit 40.3 % (36.0-48.0); Hemoglobin 12.6 g/dL (12.0-16.0); Immature Granulocytes Abs Auto 0.02 10^3/uL (0.00-0.03); Immature Granulocytes Pct Auto 0.3 % (0.0-0.5); Lymphocytes Absolute Auto 2.2 10^3/uL (1.2-3.8); Lymphocytes Percent Auto 32.5 % (20.5-60.0); Mean Corpuscular HGB Conc 31.3 g/dL (29.9-35.2); Mean Corpuscular Hemoglobin 25.8 pg (26.7-34.0); Mean Corpuscular Volume 82.4 fL (81.0-99.0); Mean Platelet Volume 11.3 fL (9.5-13.5); Monocytes Absolute Auto 0.5 10^3/uL (0.3-0.8); Neutrophils Absolute Auto 3.6 10^3/uL (1.4-6.5); Neutrophils Percent Auto 53.7 % (43.0-75.0); Platelet Count 279 10^3/uL (150-450); Red Blood Count 4.89 10^6/uL (4.20-5.40); Red Cell Distribution Width 13.6 % (11.0-15.0); White Blood Count 6.6 10^3/uL (4.0-11.0)
[2023-12-09] MEDS: LACTATED RINGER'S SOLUTION 1,000 ML 50 ML IV (06:58)
[2023-12-09 07:02] LABS: HCG Quantitative <1 mIU/mL
--- NOTE | 2023-12-09 08:30 | PM.ONB ---
Brief Operative Note Date of procedure: 12/09/23 Pre-op diagnosis general: desires permanent sterilization Post-op diagnosis: same as pre-op Procedure: NAME OF PROCEDURE: robotic assisted bilateral laparoscopic salpingectomy PROCEDURE: The patient was taken back to the Operating Room where she was given general anesthesia without difficulty. She was then prepped and draped in the normal sterile fashion after being placed in a dorsal lithotomy position. A wet sponge stick was placed into the patient's vagina. Attention was then turned to the patient's abdomen, where a scalpel was used to make a small infraumbilical incision. The S retractors were then used to dissect the underlying layers until the fascia could be seen. The fascia was then grasped with French clamps and tented up. A knife was then used to make a small incision to the fascia. The muscle was identified, at that time two sutures of #0 Vicryl on a GI needle was then used and placed through the fascia. the peritoneum was then identified and entered bluntly. The 10-4 Chandler was then placed into the patient's abdomen. This was confirmed with direct visualization of the bowel, using the laparoscope. The patient's abdomen was then insufflated using approximately 4 liters of CO2 gas. Survey of the patient's abdomen demonstrated ovaries were normal in appearance as well as both tubes and uterus. A second and third rt and lt lateral robotic ports which were 8 mm in size, was then placed after the skin incision was made under direct visualization . the robotic arms were engaged. The patient's tube on the patient's right side was identified and tented up using a grasper, the ligasure apparatus was then used to come across the mesosalpingx from the fimbriated end to the insertion site at the uterus, the tube was then amputated and removed in its entirety. This was done on the contralateral side. The tubes were the removed from the patients abdomen. Excellent hemostasis was noted. The lateral ports were then moved under direct visualization with excellent hemostasis. All instruments were removed from the patient's abdomen. The fascia was closed using the #0 Vicryl on GI needle. The skin was closed using 4-0 Vicryl subcuticularly. All instruments were removed from the patient's vagina as well. The patient was taken out of the dorsal lithotomy position and placed in the supine position and taken to recovery in stable condition. Sponge, lap and needle counts were correct x2. Surgeon: Ash Hui Sausage Stuffer: Arlin Arora Estimated blood loss (mL): 5 Pathology: other (tubes) Condition: stable Disposition: PACU Urinary Catheter Management Urinary Catheter Management Urethral: Cath placed during this visit: no
[2023-12-09] MEDS: LACTATED RINGER'S SOLUTION 1,000 ML 150 ML IV (08:51)
[2023-12-09] MEDS: HYDROCODONE/ACET 5-325 MG TABLET 1 TAB PO (10:05)
== END 2023-12-09 10:45 | disposition home or self-care (01) ==
PROVIDERS: Visit Provider Obstetrics & Gynecology
PROC: (CPT 840; principal; 2023-12-09 07:30)
DX: Z30.2 Encounter for sterilization (principal); J45.909 Unspecified asthma, uncomplicated
CPT/HCPCS: 58661; 36415; 84702; 85025; 88302; J1100; J1885; J2250; J2405; J2704; J2710; J3010